=== PATIENT | female | born 1950 | race Caucasian/White ===

== ENCOUNTER 2020-04-24 14:11 | Inpatient (IN) ==
[2020-04-24] MEDS ORDERED: Naloxone 0.4 MG/ML INJ IVP PRN (23:47)
[2020-04-24] MEDS ORDERED: Acetaminophen 325 MG TABLET PO PRN (23:47)
[2020-04-24] MEDS ORDERED: Perflutren Lipid Microsphere 1.3 ML in 0.9 % Sodium Chloride 8.7 ML IVP PRN (23:52)
[2020-04-25] MEDS ORDERED: *HR* Promethazine 25 MG/ML VIAL IVP PRN
[2020-04-25] MEDS ORDERED: Ipratropium/Albuterol Neb 3 ML IH PRN (00:02)
[2020-04-25 00:59] LABS: Hematocrit 39.5 % (35.3-44.9); Hemoglobin 11.3 g/dL (11.5-15.4); Lymphocytes % 3.8 %; Mean Corpuscular HGB Conc 28.6 g/dL (31.6-35.5); Mean Corpuscular Hemoglobin 28.6 pg (28.0-33.3); Red Blood Count 3.95 M/mcL (3.82-4.97); Segmented Neutrophils % 91.6 %
[2020-04-25 01:01] LABS: Basophils % 0.1 %; Immature Granulocytes % 0.6 % (0-4); Immature Platelets 5.7 % (1.1-6.1); Lymphocytes # 0.4 K/mcL (0.6-4.6); Mean Platelet Volume 10.1 fL (9.4-12.4); Monocytes # 0.4 K/mcL (0.0-1.3); Monocytes % 3.9 %; Neutrophils # 9.5 K/mcL (1.6-8.9); Platelet Count 136 K/mcL (140-400); Red Cell Distribution Width 15.9 % (11.5-14.5); White Blood Count 10.4 K/mcL (4.3-11.1)
[2020-04-25 01:05] LABS: INR 1.3; Prothrombin Time 14.9 Seconds (9.4-12.1)
[2020-04-25 01:11] LABS: Calcium 8.6 mg/dL (8.6-10.3)
[2020-04-25] MEDS ORDERED: Dextrose Gel 15 GM/37.5 ML TUBE PO PRN ×2 (01:16)
[2020-04-25] MEDS ORDERED: *HR* Dextrose 50 % in Water (Vial) 50 ML VIAL IVP PRN (01:16)
[2020-04-25] MEDS ORDERED: D5% in Water 1,000 ML IVC PRN (01:16)
[2020-04-25 01:20] LABS: Albumin 3.5 g/dL (3.5-5.7); Albumin/Globulin Ratio 1.5 (1.1-2.2); Bilirubin,Total 0.5 mg/dL (0.3-1.0); Calcium 8.8 mg/dL (8.6-10.3); Chol/HDL Ratio 3.2 (0-4.9); Globulin 2.3 g/dL (2.4-3.5); Magnesium 1.7 mg/dL (1.6-2.6); Phosphorous 3.5 mg/dL (2.7-4.5); Potassium 3.9 mEq/L (3.5-5.1); Total Protein 5.8 g/dL (6.4-8.9)
[2020-04-25 01:51] LABS: Hypochromasia Present (Not Present); Platelet Estimate Normal (Normal)
[2020-04-25] MEDS: Insulin LISPRO 300 UNITS/3 ML VIAL SQ SCH (04:01)
[2020-04-25 05:47] LABS: Bacteria,Urine Few per hpf (None-Few); Bilirubin,Urine Negative (Negative); Blood,Urine Negative (Negative); Clarity,Urine Clear (Clear); Color,Urine Light-Yellow (Yellow); Glucose,Urine (UA) Normal (Normal); Ketones,Urine Negative (Negative); Leukocyte Esterase,Urine Negative (Negative); Nitrite,Urine Negative (Negative); PH,Urine 8.5 pH Units (5.0-8.0); Protein,Urine 50 mg/dL (Neg-Trace); RBC,Urine 0-3 per hpf (0-3); Specific Gravity,Urine > 1.030 (1.010-1.025); Squamous Epithelial Cell,Urine Few per hpf (None-Few); WBC,Urine 0-3 per hpf (0-3)
[2020-04-25 08:53] LABS: Estimated Average Glucose 146 mg/dl; Hemoglobin A1C 6.7 %
[2020-04-25] MEDS: methylPREDNISolone 125 MG/2 ML VIAL IVP SCH ×2 (08:59→16:08)
[2020-04-25] MEDS: Apixaban 5 MG TABLET PO SCH ×2 (08:59→19:49)
[2020-04-25] MEDS ORDERED: Furosemide 20 MG/2 ML VIAL IVP SCH (09:00)
[2020-04-26] MEDS: methylPREDNISolone 125 MG/2 ML VIAL IVP SCH ×2 (00:07→10:52)
[2020-04-26 06:01] LABS: Monocytes % 3.3 %; Red Cell Distribution Width 15.6 % (11.5-14.5)
[2020-04-26 06:02] LABS: Hematocrit 42.4 % (35.3-44.9); Lymphocytes # 0.3 K/mcL (0.6-4.6); Lymphocytes % 4.6 %; Mean Corpuscular HGB Conc 28.3 g/dL (31.6-35.5); Mean Corpuscular Hemoglobin 29.1 pg (28.0-33.3); Mean Corpuscular Volume 102.7 fL (83.0-100.0); Mean Platelet Volume 9.8 fL (9.4-12.4); Monocytes # 0.2 K/mcL (0.0-1.3); Neutrophils # 6.3 K/mcL (1.6-8.9); Platelet Count 136 K/mcL (140-400); Red Blood Count 4.13 M/mcL (3.82-4.97); Segmented Neutrophils % 91.1 %; White Blood Count 6.9 K/mcL (4.3-11.1)
[2020-04-26 06:24] LABS: VBG HCO3 45 mEq/L (21-27); VBG PCO2 94 mmHg (41-51); VBG PH 7.29 pH Units (7.32-7.42); VBG PO2 71 mmHg (25-50)
[2020-04-26 06:29] LABS: BUN/Creatinine Ratio 31 (6-26); Blood Urea Nitrogen 33 mg/dL (8-23); Calcium 8.5 mg/dL (8.6-10.3); Carbon Dioxide > 45 mEq/L (23-29); Chloride 91 mEq/L (98-107); Glucose 178 mg/dL (70-105); Osmolality,Calculated 302 (280-300); Potassium 3.8 mEq/L (3.5-5.1); Sodium 140 mEq/L (136-145); eGFR For African Americans > 60 (> 60); eGFR For Non-African Americans 51 (> 60)
[2020-04-26 06:32] LABS: Hypochromasia Present (Not Present); Platelet Estimate Normal (Normal)
[2020-04-26] MEDS: Insulin LISPRO 300 UNITS/3 ML VIAL SQ SCH (07:32)
[2020-04-26] MEDS ORDERED: Furosemide 40 MG/4 ML VIAL IVP SCH (09:00)
[2020-04-26 09:44] LABS: ABG Base Excess 16 mEq/L (-2 to 3); ABG HCO3 46 mEq/L (21-27); ABG Oxygen Saturation 85 % (95-98); ABG PCO2 84 mmHg (35-45); ABG PH 7.34 pH Units (7.32-7.45); ABG PO2 57 mmHg (85-104); ABG TCO2 48 mEq/L (20-26)
[2020-04-26] MEDS: Apixaban 5 MG TABLET PO SCH ×2 (10:52→19:39)
[2020-04-26] MEDS: Losartan/HCTZ 50-12.5 TABLET PO SCH ×2 (17:44→17:47)
[2020-04-27 07:53] LABS: Basophils % 0.1 %; Hematocrit 43.9 % (35.3-44.9); Hemoglobin 12.3 g/dL (11.5-15.4); Immature Granulocytes % 0.7 % (0-4); Immature Platelets 6.2 % (1.1-6.1); Lymphocytes # 0.5 K/mcL (0.6-4.6); Lymphocytes % 5.4 %; Mean Corpuscular Hemoglobin 27.7 pg (28.0-33.3); Mean Corpuscular Volume 98.9 fL (83.0-100.0); Mean Platelet Volume 10.8 fL (9.4-12.4); Monocytes # 0.8 K/mcL (0.0-1.3); Monocytes % 9.1 %; Platelet Count 126 K/mcL (140-400); Red Blood Count 4.44 M/mcL (3.82-4.97); Red Cell Distribution Width 15.4 % (11.5-14.5); Segmented Neutrophils % 84.7 %; White Blood Count 8.3 K/mcL (4.3-11.1)
[2020-04-27] MEDS: Apixaban 5 MG TABLET PO SCH ×2 (08:09→19:44)
[2020-04-27] MEDS: predniSONE 20 MG TABLET PO SCH (08:10)
[2020-04-27] MEDS: Furosemide 40 MG TABLET PO SCH (08:10)
[2020-04-27 08:16] LABS: Anisocytosis 1+ (Not Present); Hypochromasia Present (Not Present); Platelet Estimate Slight Decrease (Normal)
[2020-04-27 08:25] LABS: BUN/Creatinine Ratio 35 (6-26); Blood Urea Nitrogen 30 mg/dL (8-23); Calcium 8.3 mg/dL (8.6-10.3); Carbon Dioxide 44 mEq/L (23-29); Chloride 91 mEq/L (98-107); Glucose 149 mg/dL (70-105); Magnesium 1.8 mg/dL (1.6-2.6); Osmolality,Calculated 299 (280-300); Potassium 3.4 mEq/L (3.5-5.1); Sodium 140 mEq/L (136-145); eGFR For African Americans > 60 (> 60); eGFR For Non-African Americans > 60 (> 60)
[2020-04-28 07:33] LABS: Basophils % 0.1 %; Mean Corpuscular Volume 101.6 fL (83.0-100.0); Mean Platelet Volume 10.6 fL (9.4-12.4); Red Cell Distribution Width 15.6 % (11.5-14.5)
[2020-04-28 07:34] LABS: Eosinophils # 0.1 K/mcL (0.0-0.6); Eosinophils % 1.2 %; Hematocrit 44.6 % (35.3-44.9); Hemoglobin 12.5 g/dL (11.5-15.4); Immature Granulocytes % 0.5 % (0-4); Immature Platelets 5.3 % (1.1-6.1); Lymphocytes # 0.9 K/mcL (0.6-4.6); Lymphocytes % 9.2 %; Mean Corpuscular Hemoglobin 28.5 pg (28.0-33.3); Monocytes % 10.4 %; Neutrophils # 7.2 K/mcL (1.6-8.9); Platelet Count 129 K/mcL (140-400); Red Blood Count 4.39 M/mcL (3.82-4.97); Segmented Neutrophils % 78.6 %; White Blood Count 9.2 K/mcL (4.3-11.1)
[2020-04-28 07:53] LABS: BUN/Creatinine Ratio 36 (6-26); Blood Urea Nitrogen 29 mg/dL (8-23); Calcium 8.2 mg/dL (8.6-10.3); Carbon Dioxide 47 mEq/L (23-29); Chloride 91 mEq/L (98-107); Glucose 106 mg/dL (70-105); Magnesium 1.9 mg/dL (1.6-2.6); Osmolality,Calculated 298 (280-300); Potassium 3.1 mEq/L (3.5-5.1); Sodium 141 mEq/L (136-145); eGFR For African Americans > 60 (> 60); eGFR For Non-African Americans > 60 (> 60)
[2020-04-28 08:08] LABS: Hypochromasia Present (Not Present); Platelet Estimate Slight Decrease (Normal)
[2020-04-28] MEDS: Apixaban 5 MG TABLET PO SCH ×2 (08:58→20:32)
[2020-04-28] MEDS: Furosemide 40 MG TABLET PO SCH (08:58)
[2020-04-28] MEDS: predniSONE 20 MG TABLET PO SCH (08:58)
[2020-04-28] MEDS ORDERED: Dextrose Gel 15 GM/37.5 ML TUBE PO PRN ×2 (15:34)
[2020-04-28] MEDS ORDERED: *HR* Dextrose 50 % in Water (Vial) 50 ML VIAL IVP PRN (15:34)
[2020-04-28] MEDS ORDERED: D5% in Water 1,000 ML IVC PRN (15:34)
[2020-04-28] MEDS: Insulin LISPRO 300 UNITS/3 ML VIAL SQ SCH (15:50)
[2020-04-28] MEDS ORDERED: Insulin LISPRO 300 UNITS/3 ML VIAL SQ SCH (21:00)
[2020-04-28] MEDS ORDERED: *HR* LORazepam 2 MG/ML VIAL IVP ONE (21:01)
[2020-04-29] MEDS: Insulin LISPRO 300 UNITS/3 ML VIAL SQ SCH ×2 (08:06→11:20)
[2020-04-29] MEDS: predniSONE 20 MG TABLET PO SCH (08:09)
[2020-04-29] MEDS: Apixaban 5 MG TABLET PO SCH (08:09)
[2020-04-29] MEDS: Furosemide 40 MG TABLET PO SCH (08:09)
[2020-04-29] MEDS ORDERED: Nicotine 14 MG PATCH.TD24 TD SCH (09:00)
[2020-04-29 11:15] VITALS: BP 118/66
[2020-04-29 11:36] LABS: Mean Platelet Volume 10.5 fL (9.4-12.4); Red Cell Distribution Width 15.6 % (11.5-14.5)
[2020-04-29 11:38] LABS: Eosinophils # 0.2 K/mcL (0.0-0.6); Hematocrit 46.9 % (35.3-44.9); Immature Platelets 6.4 % (1.1-6.1); Mean Corpuscular HGB Conc 27.7 g/dL (31.6-35.5); Mean Corpuscular Hemoglobin 27.4 pg (28.0-33.3); Mean Corpuscular Volume 98.7 fL (83.0-100.0); Platelet Count 129 K/mcL (140-400); Red Blood Count 4.75 M/mcL (3.82-4.97)
[2020-04-29 12:04] LABS: BUN/Creatinine Ratio 34 (6-26); Blood Urea Nitrogen 29 mg/dL (8-23); Calcium 8.3 mg/dL (8.6-10.3); Carbon Dioxide 41 mEq/L (23-29); Chloride 92 mEq/L (98-107); Glucose 138 mg/dL (70-105); Magnesium 1.7 mg/dL (1.6-2.6); Osmolality,Calculated 296 (280-300); Potassium 4.2 mEq/L (3.5-5.1); Sodium 139 mEq/L (136-145); eGFR For African Americans > 60 (> 60); eGFR For Non-African Americans > 60 (> 60)
[2020-04-29 16:11] LABS: Hypochromasia Present (Not Present); Lymphocytes # 0.5 K/mcL (0.6-4.6); Monocytes # 0.2 K/mcL (0.0-1.3); Platelet Estimate Slight Decrease (Normal)
== END 2020-04-29 17:00 | disposition home health service (06) | DRG 291 ==
LOC: SUATTDRO 22:37 → 2NNU 22:37 → 2ANU 04-25 13:24
PROVIDERS: ADMIT Family Medicine; ATTEND Pharmacist

== ENCOUNTER 2022-03-26 16:52 | Inpatient (IN) ==
[2022-03-26] MEDS ORDERED: Acetaminophen 325 MG TABLET PO PRN (19:43)
[2022-03-26] MEDS ORDERED: Ondansetron 4 MG/2 ML VIAL IVP PRN (19:43)
[2022-03-26] MEDS ORDERED: Naloxone 0.4 MG/ML INJ IVP PRN (19:43)
[2022-03-26] MEDS ORDERED: Ipratropium/Albuterol Neb 3 ML IH PRN (20:40)
[2022-03-26] MEDS ORDERED: Dextrose Gel 15 GM/37.5 ML TUBE PO PRN ×2 (20:41)
[2022-03-26] MEDS ORDERED: D5% in Water 1,000 ML IVC PRN (20:41)
[2022-03-26] MEDS ORDERED: *HR* Dextrose 50 % in Water (Syg) 50 ML SYRINGE IVP PRN (20:41)
[2022-03-26] MEDS: Insulin LISPRO 300 UNITS/3 ML VIAL SUBQ SCH (21:50)
[2022-03-26] MEDS: Ampicillin/Sulbactam 1,500 MG in 0.9 % Sodium Chloride Mini Bag 100 ML IVPB SCH (23:47)
[2022-03-27] MEDS: Ampicillin/Sulbactam 1,500 MG in 0.9 % Sodium Chloride Mini Bag 100 ML IVPB SCH ×4 (04:36→23:41)
[2022-03-27 05:49] LABS: Basophils % 0.4 %; Eosinophils # 0.1 K/mcL (0.0-0.6); Eosinophils % 1.4 %; Hematocrit 42.6 % (35.3-44.9); Hemoglobin 13.2 g/dL (11.5-15.4); Immature Granulocytes % 0.4 % (0-4); Lymphocytes # 1.4 K/mcL (0.6-4.6); Lymphocytes % 18.8 %; Mean Corpuscular Hemoglobin 30.8 pg (28.0-33.3); Mean Corpuscular Volume 99.5 fL (83.0-100.0); Monocytes # 0.7 K/mcL (0.0-1.3); Monocytes % 9.4 %; Platelet Count 146 K/mcL (140-400); Red Blood Count 4.28 M/mcL (3.82-4.97); Red Cell Distribution Width 14.2 % (11.5-14.5); Segmented Neutrophils % 69.6 %; White Blood Count 7.2 K/mcL (4.3-11.1)
[2022-03-27 05:55] LABS: INR 1.2; Prothrombin Time 13.6 Seconds (9.4-12.1)
[2022-03-27 06:18] LABS: Estimated Average Glucose 151 mg/dl; Hemoglobin A1C 6.9 %
[2022-03-27 06:44] LABS: BUN/Creatinine Ratio 18 (6-26); Blood Urea Nitrogen 18 mg/dL (8-23); Calcium 7.7 mg/dL (8.6-10.3); Carbon Dioxide 32 mEq/L (23-29); Chloride 99 mEq/L (98-107); Glucose 105 mg/dL (70-105); Magnesium 1.7 mg/dL (1.6-2.6); Osmolality,Calculated 288 (280-300); Potassium 4.3 mEq/L (3.5-5.1); Sodium 138 mEq/L (136-145); eGFR For African Americans > 60 (> 60); eGFR For Non-African Americans 55 (> 60)
[2022-03-27 09:19] LABS: Bacteria,Urine Few per hpf (None-Few); Bilirubin,Urine Negative (Negative); Blood,Urine Negative (Negative); Clarity,Urine Clear (Clear); Color,Urine Light-Yellow (Yellow); Glucose,Urine (UA) Normal (Normal); Hyaline Casts,Urine Few per lpf (None Seen); Ketones,Urine Negative (Negative); Leukocyte Esterase,Urine Negative (Negative); Mucus,Urine Few per lpf (None-Few); Nitrite,Urine Negative (Negative); Protein,Urine 30 mg/dL (Neg-Trace); RBC,Urine 0-3 per hpf (0-3); Specific Gravity,Urine 1.021 (1.010-1.025); Squamous Epithelial Cell,Urine Few per hpf (None-Few); Urobilinogen,Urine Normal (Normal); WBC,Urine 0-3 per hpf (0-3)
[2022-03-27] MEDS: Insulin LISPRO 300 UNITS/3 ML VIAL SUBQ SCH ×3 (09:54→23:42)
[2022-03-27 10:55] LABS: C-Reactive Protein 39 mg/L (Less than 10)
[2022-03-27] MEDS ORDERED: Levalbuterol Neb 0.63 MG/3 ML IH PRN (11:55)
[2022-03-27] MEDS ORDERED: Ringers Solution, Lactated 1,000 ML IVC SCH (12:45)
[2022-03-27] MEDS ORDERED: Lidocaine -MPF 2% 5 ML VIAL ONE (13:19)
[2022-03-27] MEDS ORDERED: *HR* FentaNYL (PF) 100 MCG/2 ML VIAL ONE (13:19)
[2022-03-27] MEDS ORDERED: *HR* Propofol 200 MG/20 ML VIAL IVP ONE (13:19)
[2022-03-27] MEDS ORDERED: *HR* Midazolam HCl 2 MG/2 ML VIAL ONE (13:19)
[2022-03-27] MEDS ORDERED: Ondansetron 4 MG/2 ML VIAL ONE (13:19)
[2022-03-27] MEDS ORDERED: Ketorolac 30 MG/ML VIAL ONE (13:30)
[2022-03-27] MEDS ORDERED: Lidocaine/EPI 1:100k 1% 50 ML VIAL ONE (14:26)
[2022-03-27] MEDS ORDERED: Ipratropium/Albuterol Neb 3 ML IH PRN (17:01)
[2022-03-27] MEDS ORDERED: Ondansetron 4 MG/2 ML VIAL IVP PRN (17:01)
[2022-03-27] MEDS ORDERED: Dextrose Gel 15 GM/37.5 ML TUBE PO PRN ×2 (17:01)
[2022-03-27] MEDS ORDERED: Naloxone 0.4 MG/ML INJ IVP PRN (17:01)
[2022-03-27] MEDS ORDERED: D5% in Water 1,000 ML IVC PRN (17:01)
[2022-03-27] MEDS ORDERED: *HR* Dextrose 50 % in Water (Syg) 50 ML SYRINGE IVP PRN (17:01)
[2022-03-27] MEDS ORDERED: predniSONE 5 MG TABLET PO SCH (17:01)
[2022-03-27] MEDS: Ringers Solution, Lactated 1,000 ML IVC SCH (18:13)
[2022-03-27] MEDS: Acetaminophen 325 MG TABLET PO PRN (18:13)
[2022-03-28 03:19] LABS: Hematocrit 43.1 % (35.3-44.9); Hemoglobin 13.2 g/dL (11.5-15.4); Mean Corpuscular HGB Conc 30.6 g/dL (31.6-35.5); Mean Corpuscular Hemoglobin 31.1 pg (28.0-33.3); Mean Corpuscular Volume 101.7 fL (83.0-100.0); Mean Platelet Volume 9.8 fL (9.4-12.4); Platelet Count 144 K/mcL (140-400); Red Blood Count 4.24 M/mcL (3.82-4.97); Red Cell Distribution Width 14.1 % (11.5-14.5); White Blood Count 7.7 K/mcL (4.3-11.1)
[2022-03-28 03:38] LABS: BUN/Creatinine Ratio 24 (6-26); Blood Urea Nitrogen 21 mg/dL (8-23); Calcium 8.8 mg/dL (8.6-10.3); Carbon Dioxide 36 mEq/L (23-29); Chloride 98 mEq/L (98-107); Glucose 102 mg/dL (70-105); Osmolality,Calculated 291 (280-300); Potassium 4.2 mEq/L (3.5-5.1); Sodium 139 mEq/L (136-145); eGFR For African Americans > 60 (> 60); eGFR For Non-African Americans > 60 (> 60)
[2022-03-28] MEDS: Ampicillin/Sulbactam 1,500 MG in 0.9 % Sodium Chloride Mini Bag 100 ML IVPB SCH ×3 (05:38→17:29)
[2022-03-28] MEDS: Acetaminophen 325 MG TABLET PO PRN (05:49)
[2022-03-28] MEDS: Insulin LISPRO 300 UNITS/3 ML VIAL SUBQ SCH ×3 (08:47→17:19)
[2022-03-28] MEDS ORDERED: Apixaban 5 MG TABLET PO SCH (09:00)
[2022-03-28] MEDS ORDERED: Furosemide 40 MG TABLET PO SCH (09:00)
[2022-03-28] MEDS: Furosemide 40 MG TABLET PO SCH (09:16)
[2022-03-28] MEDS: *HR* Metformin 500 MG TABLET PO SCH ×2 (09:17→17:29)
[2022-03-28] MEDS: Apixaban 5 MG TABLET PO SCH ×2 (09:17→22:29)
[2022-03-28] MEDS: Ringers Solution, Lactated 1,000 ML IVC SCH (18:35)
[2022-03-29] MEDS: Ampicillin/Sulbactam 1,500 MG in 0.9 % Sodium Chloride Mini Bag 100 ML IVPB SCH ×3 (01:05→13:20)
[2022-03-29 06:06] LABS: Red Blood Count 3.85 M/mcL (3.82-4.97)
[2022-03-29 06:08] LABS: Hematocrit 39.1 % (35.3-44.9); Hemoglobin 11.9 g/dL (11.5-15.4); Immature Platelets 3.9 % (1.1-6.1); Mean Corpuscular HGB Conc 30.4 g/dL (31.6-35.5); Mean Corpuscular Hemoglobin 30.9 pg (28.0-33.3); Mean Corpuscular Volume 101.6 fL (83.0-100.0); Mean Platelet Volume 9.9 fL (9.4-12.4); White Blood Count 6.7 K/mcL (4.3-11.1)
[2022-03-29 06:28] LABS: BUN/Creatinine Ratio 21 (6-26); Blood Urea Nitrogen 21 mg/dL (8-23); Calcium 8.3 mg/dL (8.6-10.3); Carbon Dioxide 39 mEq/L (23-29); Chloride 98 mEq/L (98-107); Glucose 126 mg/dL (70-105); Osmolality,Calculated 295 (280-300); Potassium 4.3 mEq/L (3.5-5.1); Sodium 140 mEq/L (136-145); eGFR For African Americans > 60 (> 60); eGFR For Non-African Americans 54 (> 60)
[2022-03-29] MEDS: Insulin LISPRO 300 UNITS/3 ML VIAL SUBQ SCH ×2 (07:27→12:43)
[2022-03-29] MEDS: Furosemide 40 MG TABLET PO SCH (07:34)
[2022-03-29] MEDS: *HR* Metformin 500 MG TABLET PO SCH (07:34)
[2022-03-29] MEDS: Apixaban 5 MG TABLET PO SCH (07:34)
[2022-03-29 07:46] VITALS: TEMP 97.7; O2SAT 94
[2022-03-29] MEDS ORDERED: Budesonide/Glycopyr/Formoterol [Breztri Aerosphere Inhaler] IH SCH (09:00)
[2022-03-29 11:25] VITALS: BP 120/63; PULSE 65
[2022-03-29] MEDS ORDERED: Moderna Covid-19 Vaccine 100MCG/0.5mL IM ONE (13:30)
== END 2022-03-29 15:45 | disposition home or self-care (01) | DRG 981 ==
LOC: 3ANU → SUATTDRO 03-27 08:11
PROVIDERS: ADMIT General Practice; ATTEND Internal Medicine